=== PATIENT | female | born 1970 | race African-American/Black ===

== ENCOUNTER 2016-09-25 09:09 | Inpatient (IN) | payer OTHER ==
[~2016-09-25] VITALS: Ht 165.1 cm; Wt 121.1 kg
--- NOTE | ~2016-09-25 | EKG ---
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
[~2016-09-25 09:09] MED LIST: ACETAMINOPHEN-1 EAC1 PO; ADULT LOW DOSE81 MG PO; ALDACTONE25 MG PO; ALPRAZOLAM 0.0.25 M1 PO; ALPRAZOLAM PO; ALPRAZOLAM1 MG PO; AMBIEN 10 MG TA10 MG PO; AMBIEN 5 MG TABL5 M1 PO; ASPIRIN EC81 M1 PO; ASPIRIN81 M2 PO; ATIVAN1 MG PO; CARAFATE 11 GM/10 M1 OR; CIPROFLOXACIN500 M1 PO; CITRATE OF MAG296 ML PO; COLACE 100 MG100 MG PO; COLACE100 MG PO; COREG CR80 MG PO; COREG25 MG PO; COUMADIN 5 MG TA5 M1 PO; COUMADIN7.5 MG PO; FUROSEMIDE 80 M80 M1 PO; GLUCOPHAGE1000 MG PO; GLUCOPHAGE500 MG PO; HYDROCODON-ACE1 EAC7 PO; JANUVIA100 MG PO; K-DUR 20 MEQ T20 MEQ PO; LASIX 20 MG TAB20 MG PO; LASIX 40 MG TAB40 M2 PO; LEVAQUIN 250 M250 MG PO; LIPITOR40 MG PO; LISINOPRIL20 MG PO; LISINOPRIL40 MG PO; LORTAB 5 MG/5001 TA1 PO; LORTABELXR PO; LUNESTA3 MG PO; MACROBID 100 M100 M1 PO; MECLIZINE 25 MG25 M1 PO; METFORMIN 500500 MG PO; METFORMIN HCL500 MG PO; MIRALAX17 GM PO; NEURONTIN 300M300 M2 PO; NORCO 5-325 TA1 EACH PO; OXYCODONE HCL10 MG PO; OXYCODONE HCL20 M1 PO; OXYCONTIN10 M1 PO; PANTOPRAZOLE SO40 M1 PO; PERCOCET 10-321 EACH PO; PERCOCET 5-3251 EACH PO; PERCOCET 7.5-31 EACH PO; PHENERGAN 25 MG25 M1 PO; PHENERGAN-CODE120 ML PO; PHENERGAN25 M2 RE; PHENERGAN25 MG RE; PHENERGAN50 MG RC; POTASSIUM20 PO; PRILOSEC 20 MG20 MG PO; PROMETHAZI6.25 MG/2 PO; PROMETHAZI6.25 MG/5 PO; PYRIDIUM200 MG PO; RESTORIL15 MG PO; TESSALON PERLE100 MG PO; TOBRADEX ST EYE5 ML OP; TOBRAMYCIN SULFA5 ML OP; TRAZODONE 150150 M1 PO; ULTRAM 50MG TAB50 MG PO; VICOPROFEN 2001 EACH PO; VISTARIL 25 MG25 M1 PO; XANAX 0.25 MG0.25 MG PO; XANAX 0.5 MG0.5 M1 PO; XANAX 0.5 MG0.5 MG PO; XANAX 1 MG TABLE1 MG PO; XANAX1 MG PO; XANAX2 MG PO; XARELTO10 MG PO; XARELTO15 MG PO; XARELTO20 MG PO
[2016-09-25 09:15] VITALS: BP 155/87
[2016-09-25 10:24] LABS: ABSOLUTE NEUTROPHILS 2.9 thou/uL (1.4-8.2); EOSINOPHILS 3.1 % (0.0-3.0); HEMATOCRIT 38.2 % (37.0-47.0); HEMOGLOBIN 13.1 gm/dL (12.0-15.0); MCH 31.9 pg (26.0-34.0); MCHC 34.4 g/dL (28.0-37.0); MCV 92.7 fL (80.0-100.0); MONOCYTES 10.3 % (1.0-8.0); PLATELET COUNT 196 thou/uL (150-400); POLYS 51.6 % (36.0-66.0); RBC 4.12 mil/uL (4.20-5.00); RDW 13.8 % (10.5-14.5); WBC 5.5 thou/uL (4.0-11.0)
[2016-09-25 10:25] LABS: MANUAL DIFF NO
[2016-09-25 10:31] LABS: ANION GAP 10 mmol/L (7-16); BUN 15 mg/dL (7-18); CALCIUM 9.2 mg/dL (8.5-10.1); CHLORIDE 103 mmol/L (98-107); CO2 25 mmol/L (21-32); CREATININE 0.9 mg/dL (0.6-1.0); GLUCOSE 170 mg/dL (74-106); SODIUM 138 mmol/L (136-145)
[2016-09-25 10:36] LABS: PROTIME 10.1 Seconds (9.3-11.4)
[2016-09-25 10:37] LABS: TROPONIN-I < 0.04 ng/mL (<0.04-0.07)
[2016-09-25 14:20] VITALS: BP 134/72
[2016-09-25 20:00] VITALS: BP 115/65
[2016-09-26 03:15] LABS: GLYCOHEMOGLOBIN (HGB A1C) 7.2 % (4.8-5.6)
[2016-09-26 04:00] VITALS: BP 97/64
[2016-09-26 04:43] LABS: MCH 32.2 pg (26.0-34.0); MCHC 34.2 g/dL (28.0-37.0); RBC 4.04 mil/uL (4.20-5.00); RDW 14.1 % (10.5-14.5); WBC 5.7 thou/uL (4.0-11.0)
[2016-09-26 07:06] VITALS: BP 130/82
[2016-09-26 16:21] VITALS: BP 128/77
[2016-09-26 23:00] VITALS: BP 138/76
[2016-09-27 04:14] LABS: ABSOLUTE NEUTROPHILS 3.7 thou/uL (1.4-8.2); BASOPHILS 0.7 % (0.0-2.0); EOSINOPHILS 3.5 % (0.0-3.0); HEMATOCRIT 33.5 % (37.0-47.0); HEMOGLOBIN 11.4 gm/dL (12.0-15.0); LYMPHOCYTES 20.1 % (24.0-44.0); MANUAL DIFF NO; PLATELET COUNT 177 thou/uL (150-400); POLYS 64.7 % (36.0-66.0); RBC 3.56 mil/uL (4.20-5.00); RDW 13.8 % (10.5-14.5); WBC 5.8 thou/uL (4.0-11.0)
[2016-09-27 04:39] LABS: ALBUMIN 3.1 g/dL (3.4-5.0); CALCIUM 8.2 mg/dL (8.5-10.1); POTASSIUM 4.3 mmol/L (3.5-5.1); TOTAL BILIRUBIN 0.4 mg/dL (<0.1-1.0); TOTAL PROTEIN 6.5 g/dL (6.4-8.2)
[2016-09-27 07:55] VITALS: BP 116/68
[2016-09-27 15:31] VITALS: BP 123/74
[2016-09-27 20:00] VITALS: BP 111/72
[2016-09-28 04:00] VITALS: BP 102/67
[2016-09-28 07:04] VITALS: BP 132/63
[2016-09-28] MEDS ORDERED: HYDROCODON-ACE1 EAC7 PO (09:42)
[2016-09-28] MEDS ORDERED: XARELTO15 MG PO (09:42)
[2016-09-28 11:38] VITALS: BP 132/63
== END 2016-09-28 14:25 | disposition home or self-care (01) | DRG 176 ==
LOC: ER 09:09 → 4E 13:00 → EROBS 13:00 → 4E 14:02
PROVIDERS: Hospitalist; Nurse Practitioner Family
DX: I26.99 Other pulmonary embolism without acute cor pulmonale (principal); D68.62 Lupus anticoagulant syndrome; I42.9 Cardiomyopathy, unspecified; M79.661 Pain in right lower leg; I50.9 Heart failure, unspecified; E11.9 Type 2 diabetes mellitus without complications; R53.1 Weakness; Z86.73 Personal history of transient ischemic attack (TIA), and cerebral infarction without residual deficits; Z86.711 Personal history of pulmonary embolism; Z95.810 Presence of automatic (implantable) cardiac defibrillator; Z95.828 Presence of other vascular implants and grafts; Z95.0 Presence of cardiac pacemaker; Z90.49 Acquired absence of other specified parts of digestive tract; Z90.711 Acquired absence of uterus with remaining cervical stump; Z88.6 Allergy status to analgesic agent; Z88.0 Allergy status to penicillin; Z88.8 Allergy status to other drugs, medicaments and biological substances; Z91.14 Patient's other noncompliance with medication regimen
CPT/HCPCS: 10183

== ENCOUNTER 2016-11-30 07:27 | Emergency (ER) | payer OTHER ==
[~2016-11-30] VITALS: Ht 165.1 cm; Wt 83.9 kg
--- NOTE | ~2016-11-30 | EKG ---
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 : 1970 Requested By: Alfonso Lin Order Number: [id number] MD: Gregg Nelson Measurements Intervals [place] Rate: 99 P: 32 DC: 165 QRS: 0 QRSD: 109 T: 70 QT: 397 QTc: 510 Interpretive Statements Atrial-sensed ventricular-paced rhythm No further analysis attempted due to paced rhythm Compared to ECG 09/25/2016 09:47:37 Sinus rhythm no longer present Electronically Signed On 11-30-2016 8:52:27 CDT by Gregg Nelson [email or web address] <ELECTRONICALLY SIGNED> By: Gregg Nelson MD, [facility] 11/30/16 0852 D: 07/732 2 Gregg Nelson MD, FACC /EPI
[2016-11-30 08:25] LABS: ABG SAMPLE TYPE ARTERIAL; BE(vivo) -0.3 mmol/L (-2 to +3); HCO3 24.9 mmol/L (22.0-26.0); LACTATE 2.35 mmol/L (0.5-2.0); O2(CT) 18.9 mL/dL (15.0-23.0); O2Hb 96.3 % (92.0-98.0); PCO2 42.6 mmHg (35.0-45.0); PO2 101.3 mmHg (80.0-100.0); pH 7.384 (7.360-7.450); sO2 97.5 % (92.0-98.0); tCO2 26.2 mmol/L (24.0-30.0)
[2016-11-30 08:26] LABS: STICK SITE L.RADIAL
[2016-11-30 08:47] LABS: ANION GAP 11 mmol/L (7-16); BUN 10 mg/dL (7-18); CALCIUM 9.2 mg/dL (8.5-10.1); CHLORIDE 103 mmol/L (98-107); CO2 24 mmol/L (21-32); CREATININE 0.9 mg/dL (0.6-1.0); GLUCOSE 163 mg/dL (74-106); POTASSIUM 3.7 mmol/L (3.5-5.1); SODIUM 138 mmol/L (136-145)
[2016-11-30 08:52] LABS: URINE BILIRUBIN NEGATIVE (Negative); URINE BLOOD NEGATIVE (Negative); URINE COLOR YELLOW; URINE GLUCOSE-RANDOM* NEGATIVE (Negative); URINE KETONES NEGATIVE (Negative); URINE NITRITE NEGATIVE (Negative); URINE PROTEIN (DIPSTICK) NEGATIVE (Negative); URINE UROBILINOGEN 0.2 E.U./dl (0.2-1.0)
[2016-11-30 08:54] LABS: PROTIME 10.1 Seconds (9.3-11.4)
[2016-11-30 08:55] LABS: TROPONIN-I < 0.04 ng/mL (<0.04-0.07)
[2016-11-30 09:42] VITALS: BP 131/66
== END 2016-11-30 09:44 | disposition home or self-care (01) ==
LOC: ER 07:27
PROVIDERS: Emergency Medicine
DX: R07.89 Other chest pain (principal); E11.9 Type 2 diabetes mellitus without complications; I42.9 Cardiomyopathy, unspecified; Z95.0 Presence of cardiac pacemaker; Z90.711 Acquired absence of uterus with remaining cervical stump; Z90.49 Acquired absence of other specified parts of digestive tract; Z86.73 Personal history of transient ischemic attack (TIA), and cerebral infarction without residual deficits; Z88.4 Allergy status to anesthetic agent; Z88.6 Allergy status to analgesic agent; Z88.0 Allergy status to penicillin; Z88.8 Allergy status to other drugs, medicaments and biological substances; F10.99 Alcohol use, unspecified with unspecified alcohol-induced disorder

== ENCOUNTER 2017-03-01 05:05 | Emergency (ER) | payer OTHER ==
[~2017-03-01] VITALS: Ht 165.1 cm; Wt 114.3 kg
--- NOTE | ~2017-03-01 | EKG ---
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 : 1970 Requested By: Trung Taylor Order Number: [id number] MD: Gregg Nelson Measurements Intervals [place] Rate: 99 P: 48 [place]: 169 QRS: -33 QRSD: 111 T: 67 QT: 371 QTc: 477 Interpretive Statements Atrial-sensed ventricular-paced rhythm No further analysis attempted due to paced rhythm Compared to ECG 02/05/2017 07:13:10 No significant changes Electronically Signed On 03-01-2017 7:58:47 CDT by Gregg Nelson [email or web address] <ELECTRONICALLY SIGNED> By: Gregg Nelson MD, [facility] 03/01/17 0758 0512 1 Gregg Nelson MD, FACC /EPI
[~2017-03-01 05:05] MED LIST changes: +PRINIVIL20 MG PO
[2017-03-01 07:04] LABS: ABSOLUTE NEUTROPHILS 3.3 thou/uL (1.4-8.2); BASOPHILS 0.6 % (0.0-2.0); EOSINOPHILS 2.4 % (0.0-3.0); HEMATOCRIT 38.3 % (37.0-47.0); HEMOGLOBIN 12.9 gm/dL (12.0-15.0); LYMPHOCYTES 21.7 % (24.0-44.0); MCH 31.2 pg (26.0-34.0); MCHC 33.6 g/dL (28.0-37.0); MCV 92.9 fL (80.0-100.0); MONOCYTES 9.3 % (1.0-8.0); PLATELET COUNT 183 thou/uL (150-400); RBC 4.12 mil/uL (4.20-5.00); RDW 14.2 % (10.5-14.5); WBC 5.1 thou/uL (4.0-11.0)
[2017-03-01 07:10] LABS: MANUAL DIFF NO
[2017-03-01 07:12] LABS: ANION GAP 8 mmol/L (7-16); BUN 13 mg/dL (7-18); CALCIUM 9.1 mg/dL (8.5-10.1); CHLORIDE 104 mmol/L (98-107); CO2 25 mmol/L (21-32); CREATININE 0.9 mg/dL (0.6-1.0); GLUCOSE 195 mg/dL (74-106); POTASSIUM 3.7 mmol/L (3.5-5.1); SODIUM 137 mmol/L (136-145)
[2017-03-01 07:19] LABS: APTT 26.3 Seconds (24.5-32.8); PROTIME 9.9 Seconds (9.3-11.4)
[2017-03-01 07:21] LABS: ALBUMIN 3.5 g/dL (3.4-5.0); ALKALINE PHOSPHATASE 98 U/L (46-116); MAGNESIUM 1.6 mg/dL (1.8-2.4); SGOT 21 U/L (15-37); SGPT 26 U/L (30-65); TOTAL BILIRUBIN 0.4 mg/dL (<0.1-1.0); TROPONIN-I < 0.04 ng/mL (<0.04-0.07)
[2017-03-01 09:26] VITALS: BP 122/62
== END 2017-03-01 09:20 | disposition home or self-care (01) ==
LOC: ER 05:05
PROVIDERS: Emergency Medicine
DX: R07.9 Chest pain, unspecified (principal); R00.0 Tachycardia, unspecified; I50.9 Heart failure, unspecified; E11.9 Type 2 diabetes mellitus without complications; Z86.73 Personal history of transient ischemic attack (TIA), and cerebral infarction without residual deficits; Z90.711 Acquired absence of uterus with remaining cervical stump; Z90.49 Acquired absence of other specified parts of digestive tract; Z86.711 Personal history of pulmonary embolism; Z88.5 Allergy status to narcotic agent; Z88.6 Allergy status to analgesic agent; Z88.0 Allergy status to penicillin; Z88.8 Allergy status to other drugs, medicaments and biological substances

== ENCOUNTER 2020-05-05 12:17 | Emergency (ER) | payer OTHER ==
[~2020-05-05] VITALS: Ht 165.1 cm; Wt 127.0 kg
[2020-05-05 13:37] LABS: URINE BILIRUBIN NEGATIVE (Negative); URINE BLOOD NEGATIVE (Negative); URINE CLARITY CLEAR; URINE COLOR YELLOW; URINE GLUCOSE-RANDOM* NEGATIVE (Negative); URINE KETONES NEGATIVE (Negative); URINE LEUKOCYTES-REFLEX NEGATIVE (Negative); URINE NITRITE-REFLEX NEGATIVE (Negative); URINE PROTEIN (DIPSTICK) NEGATIVE (Negative); URINE UROBILINOGEN 0.2 E.U./dl (0.2-1.0)
[2020-05-05 14:14] LABS: ABSOLUTE NEUTROPHILS 2.8 thou/uL (1.4-8.2); BASOPHILS 1.1 % (0.0-2.0); EOSINOPHILS 4.3 % (0.0-3.0); HEMATOCRIT 36.6 % (37.0-47.0); HEMOGLOBIN 12.2 gm/dL (12.0-15.0); LYMPHOCYTES 28.5 % (24.0-44.0); MCH 31.2 pg (26.0-34.0); MCHC 33.2 g/dL (28.0-37.0); MCV 93.9 fL (80.0-100.0); MONOCYTES 10.6 % (1.0-8.0); PLATELET COUNT 211 thou/uL (150-400); POLYS 55.5 % (36.0-66.0); RDW 14.7 % (10.5-14.5)
[2020-05-05 14:21] LABS: ANION GAP 8 mmol/L (7-16); BUN 10 mg/dL (7-18); CALCIUM 9.6 mg/dL (8.5-10.1); CHLORIDE 103 mmol/L (98-107); CO2 27 mmol/L (21-32); CREATININE 0.9 mg/dL (0.6-1.0); GLUCOSE 132 mg/dL (74-106); POTASSIUM 4.1 mmol/L (3.5-5.1); SODIUM 138 mmol/L (136-145)
[2020-05-05 14:38] LABS: ALBUMIN 3.4 g/dL (3.4-5.0); SGOT 19 U/L (15-37); SGPT 27 U/L (14-59); TOTAL BILIRUBIN 0.4 mg/dL (0.2-1.0); TROPONIN-I <0.06 ng/mL (<0.06)
[2020-05-05] MEDS ORDERED: CEFPODOXIME PR200 M1 PO (17:00)
[2020-05-05] MEDS ORDERED: VIBRAMYCIN 100100 M2 PO (17:00)
[2020-05-05] MEDS ORDERED: PHENERGAN 25 MG25 M1 PO (17:02)
[2020-05-05] MEDS ORDERED: XARELTO20 MG PO (17:20)
[2020-05-05] MEDS ORDERED: ENTRESTO 97 MG1 EACH PO (17:20)
[2020-05-05] MEDS ORDERED: LIPITOR40 MG PO (17:20)
[2020-05-05] MEDS ORDERED: CARVEDILOL25 MG PO (17:21)
[2020-05-05] MEDS ORDERED: SPIRONOLACTONE25 MG PO (17:21)
[2020-05-05] MEDS ORDERED: HUMALOG100 UNIT/1 SUBQ (17:23)
[2020-05-05] MEDS ORDERED: JANUVIA100 MG PO (17:23)
[2020-05-05] MEDS ORDERED: LANTUS SUBQ (17:23)
[2020-05-05] MEDS ORDERED: INTERMEZZO3.5 MG PO (17:24)
[2020-05-05] MEDS ORDERED: ALPRAZOLAM XR3 MG PO (17:26)
[2020-05-05] MEDS ORDERED: DURAGESIC1 EAC5 TOP (17:27)
[2020-05-05] MEDS ORDERED: PERCOCET 10-321 EAC1 PO (17:28)
[2020-05-05] MEDS ORDERED: FUROSEMIDE 40 M40 MG PO (17:28)
[2020-05-05] MEDS ORDERED: PROMETHAZI6.25 MG/5 PO (17:49)
[2020-05-05 17:55] VITALS: BP 122/75
--- NOTE | 2020-05-06 07:44 | EKG ---
[place] [address] [place] [address] ELECTROCARDIOGRAM REPORT Name: HUDSON HATFIELD Room #: DEP [facility]#: [id number] Admission: 05/05/20 Attend Phys: Discharge: 05/05/20 Date of : 68 Report #: [id number] [facility] ED Test Date: 2020-05-05 Test Time: 12:53:33 Pat Name: HUDSON HATFIELD Department: Room: Gender: F Station Operator: JENAE : 1970 Requested By: Chinyere Godwin Order Number: [id number] MD: Jef Ness Measurements Intervals [place] Rate: 80 P: 34 NV: 187 QRS: 72 QRSD: 120 T: 86 QT: 442 QTc: 510 Interpretive Statements Atrial-sensed ventricular-paced complexes No further analysis attempted due to paced rhythm Compared to ECG 09/07/2017 10:49:34 No significant changes Electronically Signed On 05-06-2020 7:44:31 GAUGE CHECKER by Jef Ness [email or web address] <ELECTRONICALLY SIGNED> By: Jef Ness MD, [facility] 05/06/20 0744 1253 1253 Jef Ness MD, FACC /EPI
== END 2020-05-05 17:53 | disposition home or self-care (01) ==
LOC: ER 12:17
PROVIDERS: Physician Assistant
DX: J18.9 Pneumonia, unspecified organism (principal); I82.413 Acute embolism and thrombosis of femoral vein, bilateral; I82.433 Acute embolism and thrombosis of popliteal vein, bilateral; R00.2 Palpitations; R11.2 Nausea with vomiting, unspecified; E11.9 Type 2 diabetes mellitus without complications; Z86.718 Personal history of other venous thrombosis and embolism; Z86.711 Personal history of pulmonary embolism; Z95.0 Presence of cardiac pacemaker; Z90.49 Acquired absence of other specified parts of digestive tract; Z90.711 Acquired absence of uterus with remaining cervical stump; Z86.73 Personal history of transient ischemic attack (TIA), and cerebral infarction without residual deficits; Z79.899 Other long term (current) drug therapy; Z88.8 Allergy status to other drugs, medicaments and biological substances; Z88.6 Allergy status to analgesic agent; Z88.0 Allergy status to penicillin; Z20.828 Contact with and (suspected) exposure to other viral communicable diseases

== ENCOUNTER 2020-06-02 09:43 | Emergency (ER) | payer OTHER ==
[~2020-06-02] VITALS: Ht 165.1 cm; Wt 115.2 kg
[~2020-06-02 09:43] MED LIST changes: +ALPRAZOLAM XR3 MG PO; +CARVEDILOL25 MG PO; +CEFPODOXIME PR200 M1 PO; +DURAGESIC1 EAC5 TOP; +ENTRESTO 97 MG1 EACH PO; +FUROSEMIDE 40 M40 MG PO; +HUMALOG100 UNIT/1 SUBQ; +INTERMEZZO3.5 MG PO; +LANTUS SUBQ; +PERCOCET 10-321 EAC1 PO; +SPIRONOLACTONE25 MG PO; +VIBRAMYCIN 100100 M2 PO
[2020-06-02 12:19] LABS: ABSOLUTE NEUTROPHILS 2.8 thou/uL (1.4-8.2); BASOPHILS 1.3 % (0.0-2.0); EOSINOPHILS 3.6 % (0.0-3.0); HEMATOCRIT 37.4 % (37.0-47.0); HEMOGLOBIN 12.5 gm/dL (12.0-15.0); MCH 31.3 pg (26.0-34.0); MCHC 33.5 g/dL (28.0-37.0); MCV 93.5 fL (80.0-100.0); MONOCYTES 10.4 % (1.0-8.0); PLATELET COUNT 218 thou/uL (150-400); POLYS 53.7 % (36.0-66.0); WBC 5.2 thou/uL (4.0-11.0)
[2020-06-02 12:32] LABS: INR 1.1; PROTIME 11.2 Seconds (9.3-11.4)
--- NOTE | 2020-06-02 12:52 | EKG ---
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: RUSSELL FELICIANO : 1970 Requested By: Brendan Carbajal Order Number: [id number] MD: Gregg Nelson Measurements Intervals [place] Rate: 93 P: 38 WI: 175 QRS: 92 QRSD: 126 T: 65 QT: 398 QTc: 496 Interpretive Statements Atrial-sensed ventricular-paced rhythm No further analysis attempted due to paced rhythm Compared to ECG 05/05/2020 12:53:33 No significant changes Electronically Signed On 06-02-2020 12:52:14 JEWELRY DIPPER by Gregg Nelson [email or web address] <ELECTRONICALLY SIGNED> By: Gregg Nelson MD, [facility] 06/02/20 1252 1006 1006 Gregg Nelson MD, FACC /EPI
[2020-06-02 13:51] LABS: CALCIUM 9.5 mg/dL (8.5-10.1); POTASSIUM 4.1 mmol/L (3.5-5.1)
[2020-06-02 13:56] LABS: ALBUMIN 3.6 g/dL (3.4-5.0); TOTAL BILIRUBIN 0.7 mg/dL (0.2-1.0); TOTAL PROTEIN 7.1 g/dL (6.4-8.2)
[2020-06-02 14:51] LABS: URINE BILIRUBIN NEGATIVE (Negative); URINE BLOOD NEGATIVE (Negative); URINE CLARITY CLEAR; URINE COLOR YELLOW; URINE GLUCOSE-RANDOM* NEGATIVE (Negative); URINE KETONES NEGATIVE (Negative); URINE LEUKOCYTES-REFLEX NEGATIVE (Negative); URINE NITRITE-REFLEX NEGATIVE (Negative); URINE PROTEIN (DIPSTICK) NEGATIVE (Negative); URINE SPECIFIC GRAVITY >= 1.030 (1.005-1.035); URINE UROBILINOGEN 0.2 E.U./dl (0.2-1.0)
[2020-06-02] MEDS ORDERED: PROMETH-CODEIN 65 ML PO (15:06)
[2020-06-02 16:34] VITALS: BP 141/84
--- NOTE | 2020-06-02 17:50 | NUR ---
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 I ATTEMPTED X2 WITH US AND NO SUCCESS DUE TO DEPTH AND SIZE OF VESSELS. MIDLINE PLACED FOR IVF, LABS AND CT
== END 2020-06-02 17:32 | disposition home or self-care (01) ==
LOC: ER 09:43
PROVIDERS: Emergency Medicine
DX: M79.604 Pain in right leg (principal); M79.605 Pain in left leg; K92.2 Gastrointestinal hemorrhage, unspecified; M54.5 Low back pain; R11.2 Nausea with vomiting, unspecified; E11.9 Type 2 diabetes mellitus without complications; Z86.711 Personal history of pulmonary embolism; Z95.0 Presence of cardiac pacemaker; Z90.49 Acquired absence of other specified parts of digestive tract; Z90.711 Acquired absence of uterus with remaining cervical stump; Z86.73 Personal history of transient ischemic attack (TIA), and cerebral infarction without residual deficits; Z88.1 Allergy status to other antibiotic agents; Z79.899 Other long term (current) drug therapy; Z79.4 Long term (current) use of insulin; Z88.8 Allergy status to other drugs, medicaments and biological substances; Z88.6 Allergy status to analgesic agent; Z88.0 Allergy status to penicillin
CPT/HCPCS: 27000

== ENCOUNTER 2020-06-11 05:04 | Emergency (ER) | payer OTHER ==
[~2020-06-11] VITALS: Ht 165.1 cm; Wt 115.2 kg
[~2020-06-11 05:04] MED LIST changes: +PROMETH-CODEIN 65 ML PO
[2020-06-11 06:56] LABS: ABSOLUTE NEUTROPHILS 3.9 thou/uL (1.4-8.2); BASOPHILS 1.6 % (0.0-2.0); EOSINOPHILS 2.1 % (0.0-3.0); HEMATOCRIT 39.4 % (37.0-47.0); HEMOGLOBIN 13.1 gm/dL (12.0-15.0); LYMPHOCYTES 24.7 % (24.0-44.0); MCH 31.2 pg (26.0-34.0); MCHC 33.4 g/dL (28.0-37.0); MCV 93.4 fL (80.0-100.0); MONOCYTES 9.9 % (1.0-8.0); POLYS 61.7 % (36.0-66.0); RBC 4.21 mil/uL (4.20-5.00); WBC 6.7 thou/uL (4.0-11.0)
[2020-06-11 07:25] LABS: ANION GAP 7 mmol/L (7-16); BUN 9 mg/dL (7-18); CHLORIDE 102 mmol/L (98-107); CO2 27 mmol/L (21-32); GLUCOSE 192 mg/dL (74-106); POTASSIUM 3.8 mmol/L (3.5-5.1); SODIUM 136 mmol/L (136-145)
[2020-06-11 07:35] LABS: ALBUMIN 3.8 g/dL (3.4-5.0); LIPASE 165 U/L (73-393); SGOT 20 U/L (15-37); SGPT 29 U/L (14-59); TOTAL BILIRUBIN 0.4 mg/dL (0.2-1.0); TOTAL PROTEIN 7.6 g/dL (6.4-8.2); TROPONIN-I <0.06 ng/mL (<0.06)
[2020-06-11 08:13] LABS: PLATELET COUNT 241 thou/uL (150-400)
[2020-06-11 09:03] LABS: URINE BILIRUBIN NEGATIVE (Negative); URINE BLOOD NEGATIVE (Negative); URINE CLARITY CLEAR; URINE COLOR YELLOW; URINE GLUCOSE-RANDOM* NEGATIVE (Negative); URINE KETONES NEGATIVE (Negative); URINE LEUKOCYTES-REFLEX NEGATIVE (Negative); URINE NITRITE-REFLEX NEGATIVE (Negative); URINE PROTEIN (DIPSTICK) NEGATIVE (Negative); URINE UROBILINOGEN 0.2 E.U./dl (0.2-1.0)
--- NOTE | 2020-06-11 09:45 | EKG ---
[place] [address] [employer] [place] [address] ELECTROCARDIOGRAM REPORT Name: HUDSON HATFIELD [facility] [id number] Admission: 06/11/20 Attend Phys: Discharge: Date of : 68 Report #: [id number] [facility] ED Test Date: 2020-06-11 Test Time: 05:14:23 Pat Name: HUDSON HATFIELD Department: Room: Gender: F Admission Liaison: ELISABETH : 1970 Requested By: Brendan Carbajal Order Number: [id number] MD: Jef Ness Measurements Intervals [place] Rate: 101 P: 70 [place]: 30 QRS: 47 QRSD: 98 T: 76 QT: 406 QTc: 527 Interpretive Statements Ventricular-paced complexes No further analysis attempted due to paced rhythm Baseline wander in lead(s) I,II,aVR Compared to ECG 06/02/2020 10:06:56 Atrial-sensed ventricular-paced complex(es) or rhythm no longer present Electronically Signed On 06-11-2020 9:45:33 SUPERVISOR STONE by Jef Ness [email or web address] <ELECTRONICALLY SIGNED> By: Jef Ness MD, [facility] 06/11/20 0945 3 3 Jef Ness MD, [facility] /EPI
[2020-06-11 10:20] VITALS: BP 151/74
== END 2020-06-11 10:21 | disposition still patient (30) ==
LOC: ER 05:04
PROVIDERS: Emergency Medicine
DX: R07.89 Other chest pain (principal); R10.31 Right lower quadrant pain; R11.10 Vomiting, unspecified; Z86.711 Personal history of pulmonary embolism; E11.9 Type 2 diabetes mellitus without complications; Z95.0 Presence of cardiac pacemaker; Z90.49 Acquired absence of other specified parts of digestive tract; Z90.711 Acquired absence of uterus with remaining cervical stump; Z86.73 Personal history of transient ischemic attack (TIA), and cerebral infarction without residual deficits; Z79.899 Other long term (current) drug therapy; Z79.2 Long term (current) use of antibiotics; Z79.4 Long term (current) use of insulin; Z88.8 Allergy status to other drugs, medicaments and biological substances; Z88.0 Allergy status to penicillin; Z88.6 Allergy status to analgesic agent

== ENCOUNTER 2020-08-15 04:43 | Emergency (ER) | payer OTHER ==
[~2020-08-15] VITALS: Ht 165.1 cm; Wt 116.1 kg
[2020-08-15 06:56] LABS: BE(vivo) 1.2 mmol/L (-2 to +3); HCO3 27.6 mmol/L (22.0-26.0); PCO2 VENOUS 51.1 mmHg (41.0-51.0)
[2020-08-15 07:01] LABS: ABSOLUTE NEUTROPHILS 3.3 thou/uL (1.4-8.2); BASOPHILS 1.2 % (0.0-2.0); EOSINOPHILS 3.3 % (0.0-3.0); HEMATOCRIT 36.8 % (37.0-47.0); HEMOGLOBIN 12.4 gm/dL (12.0-15.0); LYMPHOCYTES 24.8 % (24.0-44.0); MCHC 33.6 g/dL (28.0-37.0); MCV 92.3 fL (80.0-100.0); MONOCYTES 11.1 % (1.0-8.0); PLATELET COUNT 138 thou/uL (150-400); POLYS 59.6 % (36.0-66.0); RBC 3.99 mil/uL (4.20-5.00); RDW 14.5 % (10.5-14.5); WBC 5.6 thou/uL (4.0-11.0)
--- NOTE | 2020-08-15 07:13 | EKG ---
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 : 1970 Requested By: Lorenzo Suarez Order Number: [id number] MD: Jef Ness Measurements Intervals [place] Rate: 97 P: 41 SD: 178 QRS: 71 QRSD: 122 T: 78 QT: 422 QTc: 536 Interpretive Statements Atrial-sensed ventricular-paced rhythm No further analysis attempted due to paced rhythm Baseline wander in lead(s) I,aVL Compared to ECG 06/11/2020 05:14:23 No significant changes Electronically Signed On 08-15-2020 7:13:25 CDT by Jef Ness [email or web address] <ELECTRONICALLY SIGNED> By: Jef Ness MD, [facility] 08/15/20 0713 0500 0500 Jef Ness MD, FAC /EPI
[2020-08-15 07:24] LABS: ANION GAP 8 mmol/L (7-16); BUN 10 mg/dL (7-18); CALCIUM 9.3 mg/dL (8.5-10.1); CHLORIDE 103 mmol/L (98-107); CO2 27 mmol/L (21-32); CREATININE 0.9 mg/dL (0.6-1.0); GLUCOSE 160 mg/dL (74-106); POTASSIUM 4.1 mmol/L (3.5-5.1); SODIUM 138 mmol/L (136-145)
[2020-08-15 07:35] LABS: ALBUMIN 3.3 g/dL (3.4-5.0); AMYLASE 39 U/L (25-115); DIRECT BILIRUBIN 0.2 mg/dL (<0.1-0.2); LIPASE 70 U/L (73-393); MAGNESIUM 1.8 mg/dL (1.8-2.4); SGOT 162 U/L (15-37); SGPT 200 U/L (30-65); TOTAL BILIRUBIN 0.5 mg/dL (0.2-1.0); TOTAL PROTEIN 7.2 g/dL (6.4-8.2); TROPONIN-I <0.06 ng/mL (<0.06)
[2020-08-15] MEDS ORDERED: ZOFRAN ODT4 MG PO (10:03)
[2020-08-15 10:20] VITALS: BP 108/58
== END 2020-08-15 10:20 | disposition still patient (30) ==
LOC: ER 04:43
PROVIDERS: Emergency Medicine
DX: M79.18 Myalgia, other site (principal); R11.2 Nausea with vomiting, unspecified; I10 Essential (primary) hypertension; E66.9 Obesity, unspecified; E11.9 Type 2 diabetes mellitus without complications; R07.89 Other chest pain; Z90.711 Acquired absence of uterus with remaining cervical stump; Z79.4 Long term (current) use of insulin; Z86.711 Personal history of pulmonary embolism; Z98.51 Tubal ligation status; Z90.49 Acquired absence of other specified parts of digestive tract; Z86.73 Personal history of transient ischemic attack (TIA), and cerebral infarction without residual deficits; Z95.0 Presence of cardiac pacemaker; Z68.41 Body mass index [BMI] 40.0-44.9, adult; Z88.6 Allergy status to analgesic agent; Z88.8 Allergy status to other drugs, medicaments and biological substances; Z88.0 Allergy status to penicillin

== ENCOUNTER 2020-08-18 21:16 | Emergency (ER) | payer OTHER ==
[~2020-08-18] VITALS: Ht 170.2 cm; Wt 122.9 kg
[~2020-08-18 21:16] MED LIST changes: +ZOFRAN ODT4 MG PO
[2020-08-18 21:53] LABS: URINE BILIRUBIN NEGATIVE (Negative); URINE BLOOD NEGATIVE (Negative); URINE CLARITY CLEAR; URINE COLOR YELLOW; URINE GLUCOSE-RANDOM* NEGATIVE (Negative); URINE KETONES NEGATIVE (Negative); URINE LEUKOCYTES-REFLEX NEGATIVE (Negative); URINE NITRITE-REFLEX NEGATIVE (Negative); URINE PROTEIN (DIPSTICK) NEGATIVE (Negative); URINE SPECIFIC GRAVITY >= 1.030 (1.005-1.035); URINE UROBILINOGEN 0.2 E.U./dl (0.2-1.0)
[2020-08-18 22:42] LABS: ANION GAP 5 mmol/L (7-16); BUN 12 mg/dL (7-18); CALCIUM 8.9 mg/dL (8.5-10.1); CHLORIDE 103 mmol/L (98-107); CO2 28 mmol/L (21-32); CREATININE 0.8 mg/dL (0.6-1.0); GLUCOSE 155 mg/dL (74-106); SODIUM 136 mmol/L (136-145)
[2020-08-18 22:44] LABS: POTASSIUM 4.3 mmol/L (3.5-5.1)
[2020-08-18 22:52] LABS: ALBUMIN 3.3 g/dL (3.4-5.0); SGOT 65 U/L (15-37); SGPT 117 U/L (30-65); TOTAL BILIRUBIN 0.5 mg/dL (0.2-1.0); TOTAL PROTEIN 7.2 g/dL (6.4-8.2); TROPONIN-I <0.06 ng/mL (<0.06)
[2020-08-18 23:18] LABS: ABSOLUTE NEUTROPHILS 4.7 thou/uL (1.4-8.2); EOSINOPHILS 2.2 % (0.0-3.0); HEMATOCRIT 35.9 % (37.0-47.0); HEMOGLOBIN 12.1 gm/dL (12.0-15.0); LYMPHOCYTES 17.8 % (24.0-44.0); MCH 31.4 pg (26.0-34.0); MCHC 33.7 g/dL (28.0-37.0); MCV 93.4 fL (80.0-100.0); MONOCYTES 9.6 % (1.0-8.0); PLATELET COUNT 139 thou/uL (150-400); POLYS 69.4 % (36.0-66.0); RBC 3.85 mil/uL (4.20-5.00); RDW 14.5 % (10.5-14.5); WBC 6.8 thou/uL (4.0-11.0)
[2020-08-19 02:39] VITALS: BP 151/88
[2020-08-20] MEDS ORDERED: DECADRON4 MG PO (17:42)
[2020-08-20] MEDS ORDERED: PHENERGAN 25 MG25 M1 PO (17:42)
[2020-08-20] MEDS ORDERED: MORPHINE SULFAT15 M3 PO (17:42)
== END 2020-08-19 02:44 | disposition home or self-care (01) ==
LOC: ER 21:16
PROVIDERS: Emergency Medicine; Nurse Practitioner Family
DX: R11.2 Nausea with vomiting, unspecified (principal); M71.21 Synovial cyst of popliteal space [Baker], right knee; E11.9 Type 2 diabetes mellitus without complications; Z90.49 Acquired absence of other specified parts of digestive tract; Z86.73 Personal history of transient ischemic attack (TIA), and cerebral infarction without residual deficits; Z95.0 Presence of cardiac pacemaker; Z90.710 Acquired absence of both cervix and uterus; Z79.4 Long term (current) use of insulin; Z79.899 Other long term (current) drug therapy; Z88.0 Allergy status to penicillin; Z88.5 Allergy status to narcotic agent; Z88.8 Allergy status to other drugs, medicaments and biological substances

== ENCOUNTER 2020-08-20 16:50 | Emergency (ER) | payer OTHER ==
[~2020-08-20] VITALS: Ht 165.1 cm; Wt 122.9 kg
[2020-08-20] MEDS ORDERED: MORPHINE SULFAT15 M3 PO (17:42)
[2020-08-20] MEDS ORDERED: PHENERGAN 25 MG25 M1 PO (17:42)
[2020-08-20] MEDS ORDERED: DECADRON4 MG PO (17:42)
[2020-08-20 19:49] VITALS: BP 156/89
== END 2020-08-20 19:50 | disposition home or self-care (01) ==
LOC: ER 16:50
DX: M71.22 Synovial cyst of popliteal space [Baker], left knee (principal); M71.21 Synovial cyst of popliteal space [Baker], right knee; E11.9 Type 2 diabetes mellitus without complications; Z86.711 Personal history of pulmonary embolism; Z95.0 Presence of cardiac pacemaker; Z90.49 Acquired absence of other specified parts of digestive tract; Z90.711 Acquired absence of uterus with remaining cervical stump; Z86.73 Personal history of transient ischemic attack (TIA), and cerebral infarction without residual deficits; Z79.899 Other long term (current) drug therapy; Z79.4 Long term (current) use of insulin; Z88.6 Allergy status to analgesic agent; Z88.8 Allergy status to other drugs, medicaments and biological substances; Z88.0 Allergy status to penicillin

== ENCOUNTER 2020-09-14 13:19 | Emergency (ER) | payer OTHER ==
[~2020-09-14] VITALS: Ht 165.1 cm; Wt 109.3 kg
[~2020-09-14 13:19] MED LIST changes: +DECADRON4 MG PO; +MORPHINE SULFAT15 M3 PO
[2020-09-14] MEDS ORDERED: PREDNISONE50 MG PO (15:24)
[2020-09-14] MEDS ORDERED: NORFLEX100 MG PO (15:24)
[2020-09-14 15:53] VITALS: BP 145/75
== END 2020-09-14 15:55 | disposition home or self-care (01) ==
LOC: ER 13:19
DX: M25.561 Pain in right knee (principal); E11.9 Type 2 diabetes mellitus without complications; Z86.711 Personal history of pulmonary embolism; Z88.5 Allergy status to narcotic agent; Z88.0 Allergy status to penicillin; Z88.8 Allergy status to other drugs, medicaments and biological substances

== ENCOUNTER 2020-10-13 10:30 | Emergency (ER) | payer OTHER ==
[~2020-10-13] VITALS: Ht 165.1 cm; Wt 121.1 kg
[~2020-10-13 10:30] MED LIST changes: +NORFLEX100 MG PO; +PREDNISONE50 MG PO
[2020-10-13 11:08] VITALS: BP 197/74
== END 2020-10-13 11:08 | disposition home or self-care (01) ==
LOC: ER 10:30
DX: G89.29 Other chronic pain (principal); M25.561 Pain in right knee; M25.562 Pain in left knee; M25.552 Pain in left hip; E11.9 Type 2 diabetes mellitus without complications; Z90.89 Acquired absence of other organs; Z90.49 Acquired absence of other specified parts of digestive tract; Z90.710 Acquired absence of both cervix and uterus; Z86.73 Personal history of transient ischemic attack (TIA), and cerebral infarction without residual deficits; Z95.0 Presence of cardiac pacemaker; Z86.711 Personal history of pulmonary embolism; Z88.0 Allergy status to penicillin; Z88.1 Allergy status to other antibiotic agents; Z88.5 Allergy status to narcotic agent; Z88.6 Allergy status to analgesic agent; Z88.8 Allergy status to other drugs, medicaments and biological substances